=== PATIENT | female | born 1965 | race Caucasian/White ===

== ENCOUNTER 2019-08-04 17:11 | Emergency (ER) | payer BC ==
[~2019-08-04] VITALS: Ht 185.4 cm; Wt 103.4 kg
[2019-08-04 17:14] VITALS: Ht 185.4 cm; Wt 103.4 kg
[2019-08-04 19:52] VITALS: BP 171/98
== END 2019-08-04 19:52 | disposition home or self-care (01) ==
LOC: ED 17:11
DX: J40 Bronchitis, not specified as acute or chronic (principal); Z90.89 Acquired absence of other organs; Z98.890 Other specified postprocedural states
CPT/HCPCS: J1885

== ENCOUNTER 2020-11-01 07:10 | Emergency (ER) | payer BC ==
[~2020-11-01] VITALS: Ht 185.4 cm; Wt 108.9 kg
[2020-11-01 07:22] VITALS: Ht 185.4 cm; Wt 108.9 kg
[2020-11-01 08:34] VITALS: BP 162/89
== END 2020-11-01 08:34 | disposition home or self-care (01) ==
LOC: ED 07:10
DX: S01.511A Laceration without foreign body of lip, initial encounter (principal); X58.XXXA Exposure to other specified factors, initial encounter; Y93.89 Activity, other specified; Y92.89 Other specified places as the place of occurrence of the external cause; Y99.8 Other external cause status; I10 Essential (primary) hypertension; Z98.890 Other specified postprocedural states; Z90.89 Acquired absence of other organs

== ENCOUNTER 2020-11-01 11:07 | Emergency (ER) | payer BC ==
[~2020-11-01] VITALS: Ht 185.4 cm; Wt 64.0 kg
[2020-11-01 11:14] VITALS: Ht 185.4 cm; Wt 64.0 kg
[2020-11-01 12:08] VITALS: BP 145/80
== END 2020-11-01 12:08 | disposition home or self-care (01) ==
LOC: ED 11:07
DX: K13.0 Diseases of lips (principal); L98.8 Other specified disorders of the skin and subcutaneous tissue; R58 Hemorrhage, not elsewhere classified; I10 Essential (primary) hypertension; Z98.890 Other specified postprocedural states; Z90.89 Acquired absence of other organs

== ENCOUNTER 2020-11-03 11:49 | Emergency (ER) | payer BC ==
[~2020-11-03] VITALS: Ht 185.4 cm; Wt 109.3 kg
[2020-11-03 12:10] VITALS: Ht 185.4 cm; Wt 109.3 kg
[2020-11-03 13:31] VITALS: BP 143/78
== END 2020-11-03 13:28 | disposition home or self-care (01) ==
LOC: ED 11:49
DX: D18.09 Hemangioma of other sites (principal); I10 Essential (primary) hypertension; E78.00 Pure hypercholesterolemia, unspecified; Z90.89 Acquired absence of other organs; Z98.890 Other specified postprocedural states; Z87.01 Personal history of pneumonia (recurrent)
CPT/HCPCS: J2001